=== PATIENT | male | born 1955 | race Hispanic/Latino ===

== ENCOUNTER → 2022-07-12 | Outpatient (CLI) | payer OTHER ==
[~2022-07-12] MED LIST: ATOR10TA69 PO; KRIL1CAP12 PO
== END | disposition home or self-care (01) ==
LOC: SHCH 10:10
PROVIDERS: ATTEND Student in an Organized Health Care Education/Training Program
DX: R07.9 Chest pain, unspecified (principal); I10 Essential (primary) hypertension; E78.5 Hyperlipidemia, unspecified
CPT/HCPCS: 93306